=== PATIENT | female | born 1965 | race Caucasian/White ===

== ENCOUNTER 2016-09-17 20:32 | Emergency (ER) | payer OTHER ==
[~2016-09-17] VITALS: Ht 160 cm; Wt 59.9 kg
[~2016-09-17 20:32] MED LIST: ADVIL200 MG PO; BACTRIM DS TAB1 EACH PO; NAPROSYN500 MG PO; PREDNISONE20 MG PO
== END 2016-09-17 20:46 | disposition left against medical advice (07) ==
LOC: ED 20:32
DX: H92.01 Otalgia, right ear (principal); Z53.21 Procedure and treatment not carried out due to patient leaving prior to being seen by health care provider

== ENCOUNTER 2019-10-08 12:01 | Emergency (ER) | payer OTHER ==
[~2019-10-08] VITALS: Ht 160 cm; Wt 59.9 kg
--- OUTSIDE RECORDS SUMMARY | 2019-10-08 12:06 | XMS ---
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 Huang has no Care Guidelines for this patient. Chun VISIT COUNT (12 MO.) 1 EILEEN Barker TOTAL 1 NOTE: Visits indicate total known visits. ED/[facility] [place] VISIT TRACKING (12 MO.) 10/08/2019 12:04 EILEEN Sapp OR TYPE: Emergency COMPLAINT: - R WRIST BACK INJURY INPATIENT VISIT TRACKING (12 MO.) No inpatient visits to display in this time frame [id number]
== END 2019-10-08 15:28 | disposition home or self-care (01) ==
LOC: ED 12:01
DX: S63.501A Unspecified sprain of right wrist, initial encounter (principal); S13.9XXA Sprain of joints and ligaments of unspecified parts of neck, initial encounter; S23.3XXA Sprain of ligaments of thoracic spine, initial encounter; F17.200 Nicotine dependence, unspecified, uncomplicated; Z88.1 Allergy status to other antibiotic agents; X58.XXXA Exposure to other specified factors, initial encounter
CPT/HCPCS: 72040; 72070; 73110; 99283-25

== ENCOUNTER 2020-03-25 10:28 | Emergency (ER) | payer OTHER ==
[~2020-03-25] VITALS: Ht 160 cm; Wt 59.9 kg
--- OUTSIDE RECORDS SUMMARY | 2020-03-25 10:30 | XMS ---
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 Care History Medical/Surgical 10/09/2019 [facility] Left voice mail for call back if this was on the job injury and she should schedule follow up with PCP Dr. Corcoran. 10/09/2019 [facility] - Patient is currently established with [facility]. If patient is seen in the ED during business hours. Please contact [facility] at [facility]. Care Recommendation: If this patient has had 5 or more Emergency Department visits in the last 12 months.\T\nbsp; Patient will require education on the scope and purpose of the ED as an acute care provider not a Primary Care Provider and should not be utilized for chronic conditions.\T\nbsp; These are guidelines and the provider should exercise clinical judgment when providing care. E.D. VISIT COUNT (12 MO.) 2 EILEEN Barker TOTAL 2 NOTE: Visits indicate total known visits. ED/UCC VISIT TRACKING (12 MO.) 03/25/2020 10:28 EILEEN Sapp OR TYPE: Emergency COMPLAINT: - ALLERGIC MEDICATION REACTION 10/08/2019 12:04 EILEEN Sapp OR TYPE: Emergency COMPLAINT: - R WRIST BACK INJURY DIAGNOSES: - Allergy status to other antibiotic agents - Sprain of ligaments of thoracic spine, initial encounter - Sprain of joints and ligaments of unspecified parts of neck, initial encounter - Exposure to other specified factors, initial encounter - Nicotine dependence, unspecified, uncomplicated - Unspecified sprain of right wrist, initial encounter - Pain in right wrist INPATIENT VISIT TRACKING (12 MO.) No inpatient visits to display in this time frame [id number]
[2020-03-25] MEDS ORDERED: HYDROXYZINE HCL25 MG PO (10:59)
== END 2020-03-25 11:15 | disposition home or self-care (01) ==
LOC: ED 10:28
DX: T88.1XXA Other complications following immunization, not elsewhere classified, initial encounter (principal); L50.9 Urticaria, unspecified; T50.B95A Adverse effect of other viral vaccines, initial encounter; F17.200 Nicotine dependence, unspecified, uncomplicated; Z88.8 Allergy status to other drugs, medicaments and biological substances; Z88.0 Allergy status to penicillin
CPT/HCPCS: 99283; J1100

== ENCOUNTER 2020-12-11 12:31 | Emergency (ER) | payer OTHER ==
[~2020-12-11] VITALS: Ht 160 cm; Wt 59.9 kg
[~2020-12-11 12:31] MED LIST changes: +HYDROXYZINE HCL25 MG PO
--- OUTSIDE RECORDS SUMMARY | 2020-12-11 12:40 | XMS ---
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 Care History Medical/Surgical 04/01/2020 [facility] - PATIENT DOES NOT HAVE A PCP- PLEASE REFER PATIENT TO THE WALK IN CLINIC FOR NON EMERGENT MEDICAL CONCERNS IF SEEN IN THE ED. Chun VISIT COUNT (12 MO.) 2 [facility] TOTAL 2 NOTE: Visits indicate total known visits. ED/UCC VISIT TRACKING (12 MO.) 12/11/2020 12:32 EILEEN Sapp OR TYPE: Emergency COMPLAINT: - POSS ALLERGIC REATION 03/25/2020 10:28 EILEEN Sapp OR TYPE: Emergency COMPLAINT: - ALLERGIC MEDICATION REACTION DIAGNOSES: - Low back pain - Adverse effect of other viral vaccines, initial encounter - Other complications following immunization, not elsewhere classified, initial encounter - Allergy status to penicillin - Rash and other nonspecific skin eruption - Allergy status to other drugs, medicaments and biological substances - Urticaria, unspecified - Nicotine dependence, unspecified, uncomplicated INPATIENT VISIT TRACKING (12 MO.) No inpatient visits to display in this time frame [id number]
== END 2020-12-11 14:35 | disposition home or self-care (01) ==
LOC: ED 12:31
DX: L50.0 Allergic urticaria (principal); T50.B95A Adverse effect of other viral vaccines, initial encounter; F17.200 Nicotine dependence, unspecified, uncomplicated; Z88.0 Allergy status to penicillin
CPT/HCPCS: 99282; J1100

== ENCOUNTER 2022-03-16 23:29 | Emergency (ER) | payer OTHER ==
[~2022-03-16] VITALS: Ht 160 cm; Wt 59.9 kg
--- OUTSIDE RECORDS SUMMARY | 2022-03-16 23:36 | XMS ---
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 Care History Medical/Surgical 04/01/2020 [facility] - PATIENT DOES NOT HAVE A PCP- PLEASE REFER PATIENT TO THE WALK IN CLINIC FOR NON EMERGENT MEDICAL CONCERNS IF SEEN IN THE ED. Chun VISIT COUNT (12 MO.) [address] [place] [address] TOTAL 1 NOTE: Visits indicate total known visits. ED/UCC VISIT TRACKING (12 MO.) 03/16/2022 23:30 EILEEN Sapp OR TYPE: Emergency COMPLAINT: - BACK PAIN INPATIENT VISIT TRACKING (12 MO.) No inpatient visits to display in this time frame [id number]
== END 2022-03-17 00:26 | disposition home or self-care (01) ==
LOC: ED 23:29
DX: S16.1XXA Strain of muscle, fascia and tendon at neck level, initial encounter (principal); S29.012A Strain of muscle and tendon of back wall of thorax, initial encounter; F17.200 Nicotine dependence, unspecified, uncomplicated; Z88.0 Allergy status to penicillin; X50.0XXA Overexertion from strenuous movement or load, initial encounter
CPT/HCPCS: 72040; 72070; 99283-25; A9270